=== PATIENT | female | born 1980 | race Asian ===

== ENCOUNTER 2021-08-24 06:41 | Emergency (ER) | payer BC ==
[2021-08-24] MEDS ORDERED: KETOROLAC 30 MG/ML INJ ONE (07:37)
[2021-08-24] MEDS ORDERED: NA CHLORIDE 0.9% 1,000 ML ONE (07:37)
[2021-08-24 07:47] LABS: Absolute Lymphocytes (CBC) 1.8 K/uL (0.7-4.9); Hematocrit 36.6 % (36.0-45.0); Lymphocytes % 29.9 % (15.3-44.8); MPV 7.1 fL (7.6-11.3); RBC Red Blood Cell Count 4.15 M/uL (3.86-4.86)
[2021-08-24 08:02] LABS: BUN Blood Urea Nitrogen 12 mg/dL (7-18); Bicarbonate 28 mmol/L (21-32); Glucose Level 120 mg/dL (74-106); Sodium Level 139 mmol/L (136-145)
--- NOTE | 2021-08-24 08:59 | RAD REPORT ---
EXAM DESCRIPTION: CT - Soft Tissue Neck W/Contr - 08/24/2021 8:33 am CLINICAL HISTORY: PAIN COMPARISON: <Comparisons> TECHNIQUE: During dynamic enhancement using 100 milliliters nonionic IV contrast, axial 5 millimeter thick images of the neck were obtained. All CT scans are performed using dose optimization technique as appropriate and may include automated exposure control or mA/KV adjustment according to patient size. FINDINGS: Intracranial portion the examination is unremarkable. No globe or orbital content abnormal ity. Mastoid air cells, middle ears and paranasal sinuses are normally aerated. No vascular abnormali ty seen. Adenoid tissue and tonsillar tissue within range of normal for patient age. Parapharyngeal fat is nor mal in appearance. No pharyngeal mucosal mass or asymmetry identifiable. No soft palate, tongue base or epiglottis abnormality seen. Laryngeal structures are unremarkable. The parotid and submandibular glands show no abnormal enlargement, mass or enhancement abnormality. N ormal size thyroid gland seen with no gross abnormality. No mass or lymphadenopathy in the soft tissues. A few small sub centimeter nonspecific cervical lymph nodes are present. No acute bone finding identifiable. C5-6 disc space narrowing is present. There is a mild disc bulge. Canal is 10 mm at this level. Uncovertebral joint hypertrophy causes a mild left foraminal stenosis. No right foraminal stenosis identifiable. IMPRESSION: As detailed above, no significant or suspicious soft tissue finding identifiable. C5-6 disc space narrowing with mild disc bulge. Canal is 10 mm in the midline. Mild left bony foramin al encroachment seen. No specific finding seen that would clearly explain right neck pain and right upper extremity radicul opathy.
--- NOTE | 2021-08-24 09:06 | ER ---
Nurse's Notes [facility] Name: Ary Villanueva Age: 41 yrs Sex: Female : 1980 Arrival Date: 08/24/2021 Time: 06:46 Bed 4 Private MD: Diagnosis: Radiculopathy, cervical region Presentation: 08/24 07:19 Chief complaint: Patient states: pt presented to reporting back, arm and neck pain. mccain Coronavirus screen: Vaccine status: Patient reports receiving the 2nd dose of the covid vaccine. Ebola Screen: Patient denies travel to an Ebola-affected area in the 21 days before illness onset. Initial Sepsis Screen: Does the patient meet any 2 criteria? No. Patient's initial sepsis screen is negative. Does the patient have a suspected source of infection? No. Patient's initial sepsis screen is negative. Risk Assessment: Do you want to hurt yourself or someone else? Patient reports no desire to harm self or others. Onset of symptoms was August 2021. 07:19 Method Of Arrival: Ambulatory 07:19 Acuity: JIAN 3 mccain Triage Assessment: 07:20 General: Appears in no apparent distress. Behavior is calm, cooperative. Pain: mccain Complains of pain in upper back, neck and arm. Musculoskeletal: Range of motion: limited in left shoulder, left elbow, right shoulder and right elbow. 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 - Social history:: Smoking status: Patient denies any tobacco usage or history of. Screenin:26 Abuse screen: Denies threats or abuse. Nutritional screening: No deficits noted. ke1 Tuberculosis screening: No symptoms or risk factors identified. Fall Risk No fall in past 12 months (0 pts). No secondary diagnosis (0 pts). IV access (20 points). Ambulatory Aid- None/Bed Rest/Nurse Assist (0 pts). Gait- Normal/Bed Rest/Wheelchair (0 pts) Mental Status- Oriented to own ability (0 pts). Total Owusu Fall Scale indicates No Risk (0-24 pts). Assessment: 07:25 General: Appears in no apparent distress. Behavior is calm, cooperative. Pain: ke1 Complains of pain in back and neck region Pain does not radiate. Pain currently is 3 out of 10 on a pain scale. at worst was 7 out of 10 on a pain scale. level that patient reports is acceptable is 3 out of 10 on a pain scale. Quality of pain is described as aching, Alleviated by rest, relaxation, Aggravated by exercise, increased activity, Also complains of inability to concentrate. Neuro: Level of Consciousness is awake, alert, obeys commands, Oriented to person, place, time, situation. Neuro: Speech is normal, Facial symmetry appears normal, Pupils are PERRLA, Intact. Cardiovascular: Heart tones S1 S2. Respiratory: Airway is patent Trachea midline Respiratory effort is even, unlabored, Respiratory pattern is regular, symmetrical. GI: No deficits noted. : No deficits noted. EENT: No deficits noted. Derm: No deficits noted. Musculoskeletal: Capillary refill < 3 seconds, Range of motion: intact in all extremities. Vital Signs: 07:19 BP 125 / 91; Pulse 81; Resp 18; Temp 98.1; Pulse Ox 99% on R/A; Weight 63.96 kg; Height mccain 5 ft. 4 in. (162.56 cm); 08:00 Pain 0/10; ke1 08:19 BP 112 / 73; Pulse 62; Resp 18; Pulse Ox 100% on R/A; ke1 07:19 Body Mass Index 24.20 (63.96 kg, 162.56 cm) mccain ED Course: 06:46 Patient arrived in ED. es 07:11 Sarita Guerrero FNP-C is PHCP. kb 07:11 Nimesh Styles MD is Attending Physician. kb 07:20 Triage completed. mccain 07:20 Arm band placed on. mccain 07:25 Placed in gown. Bed in low position. Call light in reach. Adult w/ patient. ke1 07:30 Cristo Esquivel, SKYLER is Primary Nurse. ke1 07:30 Inserted saline lock: 20 gauge in right wrist, using aseptic technique. ke1 08:33 CT Soft Tissue Neck W/contr In Process Unspecified. EDMS 09:29 No provider procedures requiring assistance completed. Inserted IV discontinued, mccain intact, Pressure dressing applied. Administered Medications: 07:42 Drug: NS 0.9% 1000 ml Route: IV; Rate: 1000 ml; Site: right wrist; ke1 07:43 Drug: Ketorolac 15 mg Route: IVP; Site: right wrist; ke1 08:00 Follow up: Pain 0/ Adult ke1 Outcome: 09:05 Discharge ordered by MD. kwan 09:29 Discharged to home mccain 09:29 Condition: good 09:29 Prescriptions given X 2. 09:30 Patient left the ED. mccain Signatures: Dispatcher [employer] Sarita Ferreira, GILBERT-C GILBERT-Crissy Fong Heather, RN RN mccain Cristo Esquivel RN RN ke
--- NOTE | 2021-08-24 09:06 | EDPHYS ---
Physician Documentation [facility] Name: Ary Villanueva Age: 41 yrs Sex: Female : 1980 Arrival Date: 08/24/2021 Time: 06:46 Bed 4 Private MD: ED Physician Nimesh Styles HPI: 08/24 07:19 This 41 yrs old Female presents to ER via Unassigned with complaints of Back kb Pain, Neck Pain, <24hrs Old, Arm Pain. 07:19 The patient has not experienced similar symptoms in the past. The patient has not kb recently seen a physician. 07:20 The patient or guardian complains of pain, tenderness. The symptoms are located on the kb right lateral aspect of neck and right posterior aspect of neck. Onset: The symptoms/episode began/occurred 4 day(s) ago. Context: The problem was sustained at home, The neck injury/problem resulted from from unknown cause. Associated signs and symptoms: The patient has no apparent associated signs or symptoms, The patient denies any alcohol use. The patient is not apparently intoxicated. No neurological symptoms were experienced by the patient prior to arrival in the emergency department. The pain radiates to the right arm. Modifying factors: The symptoms are alleviated by nothing. the symptoms are aggravated by nothing. Severity of symptoms: At their worst the symptoms were moderate, in the emergency department the symptoms are unchanged. Pt reports deep pain to right lateral neck that started 4 days ago and has gotten progressively worse. States she had trouble moving around this morning due to pain. States pain radiates down right arm and up to right ear/head. Denies fever, chills, nausea or vomiting. . 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 - Social history:: Smoking status: Patient denies any tobacco usage or history of. ROS: 07:19 Constitutional: Negative for fever, chills, and weight loss. kb 07:19 Neck: Positive for pain with movement, pain at rest, tenderness, of the right posterior aspect of neck and right lateral aspect of neck. 07:19 All other systems are negative. Exam: 07:19 Constitutional: This is a well developed, well nourished patient who is awake, alert, kb and in no acute distress. Head/Face: Normocephalic, atraumatic. ENT: Moist Mucous membranes Neck: Trachea midline, no thyromegaly or masses palpated, and no cervical lymphadenopathy. Supple, full range of motion without nuchal rigidity, or vertebral point tenderness. No Meningismus. Cardiovascular: Regular rate and rhythm with a normal S1 and S2. No gallops, murmurs, or rubs. No pulse deficits. Respiratory: Respirations even and unlabored. No increased work of breathing. Talking in full sentences Skin: Warm, dry with normal turgor. Normal color. MS/ Extremity: Pulses equal, no cyanosis. Neurovascular intact. Full, normal range of motion. Neuro: Awake and alert, GCS 15, oriented to person, place, time, and situation. Moves all extremities. Normal gait. Psych: Awake, alert, with orientation to person, place and time. Behavior, mood, and affect are within normal limits. Vital Signs: 07:19 BP 125 / 91; Pulse 81; Resp 18; Temp 98.1; Pulse Ox 99% on R/A; Weight 63.96 kg; Height mccain 5 ft. 4 in. (162.56 cm); 08:00 Pain 0/10; ke1 08:19 BP 112 / 73; Pulse 62; Resp 18; Pulse Ox 100% on R/A; ke1 07:19 Body Mass Index 24.20 (63.96 kg, 162.56 cm) mccain MDM: 07:11 Patient medically screened. kb 07:19 Data reviewed: vital signs, nurses notes. Data interpreted: Pulse oximetry: on room air kb is 100 %. Interpretation: normal. 09:05 Counseling: I had a detailed discussion with the patient and/or guardian regarding: the kb historical points, exam findings, and any diagnostic results supporting the discharge/admit diagnosis, lab results, radiology results, the need for outpatient follow up, a family practitioner, to return to the emergency department if symptoms worsen or persist or if there are any questions or concerns that arise at home. 08/24 07:18 Order name: CBC with Diff; Complete Time: 07:53 kb 08/24 07:18 Order name: Basic Metabolic Panel; Complete Time: 08:03 kb 08/24 07:18 Order name: IV Start; Complete Time: 08:27 kb 08/24 07:18 Order name: CT Soft Tissue Neck W/contr; Complete Time: 09:00 kb Administered Medications: 07:42 Drug: NS 0.9% 1000 ml Route: IV; Rate: 1000 ml; Site: right wrist; ke1 07:43 Drug: Ketorolac 15 mg Route: IVP; Site: right wrist; ke1 08:00 Follow up: Pain 0/10 Adult ke1 Disposition Summary: 08/24/21 09:05 Discharge Ordered Location: Home kb Condition: Stable kb Diagnosis - Radiculopathy, cervical region kb Followup: kb - With: Emergency Department - When: As needed - Reason: Worsening of condition Followup: kb - With: Private Physician - When: 2 - 3 days - Reason: Recheck today's complaints, Continuance of care, Re-evaluation by your physician Discharge Instructions: - Discharge Summary Sheet kb - Cervical Radiculopathy, [id number] kb Forms: - Medication Reconciliation Form kb - Thank You Letter kb - Antibiotic Education kb - Prescription Opioid Use kb Prescriptions: - Cyclobenzaprine 10 mg Oral Tablet - take 1 tablet by ORAL route every 8 hours As needed; 21 tablet; Refills: 0, kb Product Selection Permitted - Diclofenac Sodium 75 mg Oral tablet,delayed release (DR/EC) - take 1 tablet by ORAL route 2 times per day As needed; 30 tablet; Refills: 0, kb Product Selection Permitted Signatures: Dispatcher [employer] Sarita Ferreira, Brynn Carrion, RN RN Cristo Esquivel RN RN ke1
[2021-08-24 09:53] VITALS: TEMP 98.1
[2021-08-24 09:55] VITALS: BP 112/73; O2SAT 100
== END 2021-08-24 09:30 | disposition home or self-care (01) ==
LOC: ER 06:41
DX: M54.12 Radiculopathy, cervical region (principal)
CPT/HCPCS: 85025; 80048; 36415; 70491; 96374; 99283; Q9967; J7030

== ENCOUNTER 2024-04-26 21:43 | Emergency (ER) | payer BC ==
[2024-04-26] MEDS ORDERED: METOCLOPRAMIDE 10 MG/2mL INJ ONE (21:55)
[2024-04-26] MEDS ORDERED: DIPHENHYDRAMINE 50 MG/ML VIAL ONE (21:55)
[2024-04-26] MEDS ORDERED: NA CHLORIDE 0.9% 1,000 ML ONE (21:56)
--- NOTE | 2024-04-26 22:18 | RAD REPORT ---
EXAM: CT Ct Stroke Brain Wo Cont HISTORY: STROKE ALERT COMPARISON: 08/24/2021 TECHNIQUE: Multiple contiguous axial images were obtained for a CT of the brain without contrast. Sag ittal and coronal reformats were performed. One or more of the following dose reduction techniques were used: Automated exposure control, adjus tment of the mA and kV according to patient size, and iterative reconstruction. Unless otherwise specified, incidental findings do not require dedicated imaging follow-up. FINDINGS: No evidence of hydrocephalus, intracranial hemorrhage, or extra-axial fluid collection. The brain is normal in morphology. The calvarium is intact. The visualized paranasal sinuses and mastoid air cells are essentially clear . IMPRESSION: No evidence of acute intracranial abnormality. THIS REPORT CONTAINS FINDINGS THAT MAY BE CRITICAL TO PATIENT CARE. The findings were communicated vi a telephone to the ED staff to be communicated to Dr. Caruso on 04/26/2024 10:15 PM.
--- NOTE | 2024-04-26 22:30 | RAD REPORT ---
EXAMINATION: CT Neck Angio CLINICAL INDICATION: Female, 43 years old. [facility] MAIN dizzines Bed Name: 3 TECHNIQUE: Axial CT images were obtained from the aortic arch to the skull base after intravenous con trast utilizing angiographic protocol. Multiplanar reformats, as well as 3D post-processing (maximum intensity projection images, volume rendered images and/or shaded surface rendered images) w ere generated and reviewed. One or more of the following dose reduction techniques were used: Automated exposure control, adjustment of the mA and/or kV according to patient size, and/or iterativ e reconstruction. Unless otherwise specified, incidental findings do not require dedicated imaging follow-up. COMPARISON: No prior exam. FINDINGS: AORTA: The imaged aortic arch is normal. Normal three-vessel configuration of the arch. CCA: No artifact The common carotid arteries are patent and normal in caliber. ICA/ECA: Bilateral internal and external carotid arteries are patent. There is no significant interna l carotid artery stenosis. VERTEBRAL: The cervical vertebral arteries are patent to the skull base. Left vertebral artery is dom inant. SOFT TISSUE: No significant neck soft tissue abnormalities. The visualized lung apices are clear. 3D images confirm these findings. IMPRESSION: No significant flow abnormality of the neck vessels is identified. NASCET criteria used to quantify ICA stenosis, with the following grading scheme: Mild 0-49% stenosis Moderate 50-69% stenosis Severe 70-99% stenosis Reference: [place] Symptomatic Carotid Endarterectomy Trial Collaborators; Maurilio DRAKE, Brigitte SOTO, Ewelina RB, et al. Beneficial effect of carotid endarterectomy in symptomatic patients with high-grade carotid stenosis. N Engl J Med. 1990Feb 01;325(7):445-53.
--- NOTE | 2024-04-26 22:33 | RAD REPORT ---
EXAMINATION: CTA HEAD CLINICAL INDICATION: Female, 43 years old. DIZZINESS TECHNIQUE: Axial CT images were obtained through the head after intravenous contrast utilizing angiog raphic protocol with 3D post-processing (maximum intensity projection images, volume rendered images and/or shaded surface rendered images). One or more of the following dose reduction technique s were used: Automated exposure control, adjustment of the mA and/or kV according to patient size, and/or iterative reconstruction. Unless otherwise specified, incidental findings do not require dedic ated imaging follow-up. COMPARISON: No prior exam. FINDINGS: ICA: The petrous, cavernous, and supraclinoid segments of the bilateral internal carotid arteries are normal. DESHAWN: Anterior cerebral arteries are normal bilaterally. The anterior communicating artery is patent. MCA: Middle cerebral arteries are normal bilaterally. GALVANIZER ZINC: Posterior cerebral arteries are normal bilaterally. Vertebrobasilar: The vertebral arteries are patent. The basilar artery is normal in appearance. 3D images confirm these findings. IMPRESSION: Normal head CTA.
--- NOTE | 2024-04-26 22:44 | RAD REPORT ---
EXAMINATION: ONE VIEW CHEST XR CLINICAL INDICATION: Female, 43 years old.,stroke alert TECHNIQUE: Frontal chest projection is submitted. Examination is limited by patient positioning and t echnique. COMPARISON: No prior exam. FINDINGS: The lungs are well inflated and clear. No pneumothorax or sizable effusion. The heart is normal in s ize. Mediastinal contours are unremarkable. IMPRESSION: No acute intrathoracic abnormalities.
[2024-04-26 22:46] LABS: Absolute Lymphocytes (CBC) 1.7 K/uL (0.7-4.9); Absolute Monocytes 0.3 K/uL (0.1-1.3); Absolute Neutrophil 6.4 K/uL (1.8-8.0); Basophils % 0.1 % (0-1.3); Eosinophils % 0.6 % (0-4.4); Hematocrit 37.1 % (36.0-45.0); Hemoglobin 12.5 g/dL (12.0-15.0); Lymphocytes % 20.5 % (15.3-44.8); MCH 29.6 pg (27.0-35.0); MCHC 33.6 g/dL (32.0-36.0); MCV 88.1 fL (80-100); MPV 6.9 fL (7.6-11.3); Monocytes % 3.2 % (3.3-12.3); Neutrophils % 75.6 % (41.7-73.7); Nucleated Red Blood Cells % 0.1 % (0-0); Platelets 378 thou/uL (152-406); RBC Red Blood Cell Count 4.21 M/uL (3.86-4.86); Red Cell Distribution Width 13.2 % (12.1-15.2)
[2024-04-26 22:57] LABS: PT Prothrombin Time 10.6 SECONDS (9.4-12.5); PTT, Activated Partial Thromb 29.7 SECONDS (24.3-36.9); Protime INR 0.94
[2024-04-26 23:22] LABS: Anion Gap 6.5 mEq/L (5.0-15.0); Potassium 3.5 mEq/L (3.5-5.1)
--- NOTE | 2024-04-27 00:16 | ER ---
Nurse's Notes [facility] Name: Ary Villanueva Age: 43 yrs Sex: Female : 1980 Arrival Date: 04/26/2024 Time: 21:43 Bed 3 Private MD: Diagnosis: Other peripheral vertigo Presentation: 04/26 21:45 Chief complaint: Patient states: DIZZINESS AND VOMITING. ha1 21:45 Coronavirus screen: Vaccine status: Patient reports being unvaccinated. Ebola Screen: ha1 No symptoms or risks identified at this time. Initial Sepsis Screen: Does the patient meet any 2 criteria? No. Patient's initial sepsis screen is negative. Does the patient have a suspected source of infection? No. Patient's initial sepsis screen is negative. Risk Assessment: Do you want to hurt yourself or someone else? Patient reports no desire to harm self or others. Onset of symptoms was April 26, 2024. 21:45 Method Of Arrival: Wheelchair ha1 21:45 Acuity: JIAN 2 ha1 Triage Assessment: 21:45 General: Appears uncomfortable, Behavior is calm, cooperative. Pain: Denies pain. ha1 Neuro: Level of Consciousness is awake, alert, obeys commands, Oriented to person, place, time, situation, Reports dizziness. Cardiovascular: Capillary refill < 3 seconds Patient's skin is warm and dry. Respiratory: Airway is patent Respiratory effort is even, unlabored, Respiratory pattern is regular, symmetrical. 21:45 GI: Reports nausea, vomiting. ha1 Historical: - Allergies: 22:06 No Known Allergies; ha1 - PMHx: 22:06 Migraine; ha1 - PSHx: 22:06 None; ha1 - Immunization history:: Adult Immunizations not immunized. - Infectious Disease History:: Denies. - Social history:: Smoking status: Patient denies any tobacco usage or history of. Screenin:45 [facility] ED Fall Risk Assessment (Adult) History of falling in the last 3 months, jj7 including since admission No falls in past 3 months (0 pts) Confusion or Disorientation No (0 pts) Intoxicated or Sedated No (0 pts) Impaired Gait No (0 pts) Mobility Assist Device Used No (0 pt) Altered Elimination No (0 pt) Score/Fall Risk Level 0 - 2 = Low Risk Oriented to surroundings, Maintained a safe environment, Educated pt \T\ family on fall prevention, incl call for assistance when getting out of bed, Assessed \T\ reinforced patient's understanding of fall precautions. Abuse screen: Denies threats or abuse. Nutritional screening: No deficits noted. Tuberculosis screening: No symptoms or risk factors identified. Assessment: 21:45 General: Appears in no apparent distress. uncomfortable, Behavior is calm, cooperative, jj7 appropriate for age. Pain: Denies pain. Neuro: Reports dizziness, since 6p. 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 Full function Gait is steady, Speech is normal, Facial symmetry appears normal, Intact Reports. GI: Reports nausea, vomiting, from the dizziness. 04/27 00:19 Reassessment: PT UP AND AMBULATING WITH NO DIZZINESS. STEADY GAIT. jj7 Vital Signs: 04/26 21:45 BP 135 / 91; Pulse 76; Resp 17 S; Temp 97.6(T); Pulse Ox 99% on R/A; Weight 61.23 kg; ha1 Height 5 ft. 3 in. ; 22:44 BP 91 / 52; Pulse 77; Resp 17; Pulse Ox 98% ; jj7 23:30 BP 90 / 58; Pulse 71; Resp 17; Pulse Ox 98% ; jj7 04/27 00:28 BP 99 / 59; Pulse 80; Resp 18; Temp 98.8; Pulse Ox 100% ; Pain 0/10; jj7 04/26 21:45 Body Mass Index 23.91 (61.23 kg, 160.02 cm) 1 04/27 00:28 Pain Scale: Adult jj7 ED Course: 04/26 21:44 Patient arrived in ED. jj6 21:45 Patient has correct armband on for positive identification. Bed in low position. Call j7 light in reach. Side rails up X2. Provided Education on: USE OF CALL PICHARDO. Client placed on continuous cardiac and pulse oximetry monitoring. NIBP monitoring applied. 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 Pulse ox on. Warm blanket given. 21:45 Arm band placed on right wrist. Patient placed in an exam room, on a stretcher. jj7 21:50 Casey Caruso MD is Attending Physician. ec2 21:52 Sheng Delgado, RN is Primary Nurse. jj7 21:54 Triage completed. ha1 22:11 CT Stroke Brain w/o Contrast In Process Unspecified. EDMS 22:13 Inserted saline lock: 20 gauge in right antecubital area, using aseptic technique. jj7 Blood collected. Flushed with 10 mL NS. 22:21 CT Neck Angio In Process Unspecified. EDMS 22:22 Head angio In Process Unspecified. EDMS 22:28 Stroke CXR 1 View In Process Unspecified. EDMS 22:33 Basic Metabolic Panel Sent. jj7 22:33 CBC with Diff Sent. jj7 22:33 High Sensitivity Troponin Sent. jj7 22:33 Protime (+inr) Sent. jj7 22:33 Ptt, Activated Sent. jj7 23:13 Basic Metabolic Panel Sent. jj7 23:14 High Sensitivity Troponin Sent. jj7 04/27 00:16 Chang Edmond MD is Referral Physician. ec2 00:27 No provider procedures requiring assistance completed. IV discontinued, intact, jj7 bleeding controlled, No redness/swelling at site. Pressure dressing applied. Administered Medications: 04/26 22:27 Drug: NS 0.9% IV 1000 ml IV at 1000 ml once; to be given as a bolus over 60 minutes jj7 Route: IV; Rate: 1000 ml; Site: right antecubital; 04/27 00:20 Follow up: IV Status: Completed infusion jj7 04/26 22:28 Drug: metoCLOPramide IVP 10 mg IVP once; over 1 to 2 minutes Route: IVP; Site: right [facility] antecubital; 23:03 Follow up: Response: Marked relief of symptoms jj7 22:28 Drug: diphenhydrAMINE IVP 25 mg IVP once Route: IVP; Site: right antecubital; jj7 23:03 Follow up: Response: Marked relief of symptoms jj7 04/27 00:26 Drug: Meclizine PO 50 mg PO once Route: PO; jj7 00:26 Follow up: Response: No adverse reaction jj7 Medication: 04/26 21:45 VIS not applicable for this client. jj7 Outcome: 04/27 00:16 Discharge ordered by . ec2 00:26 Discharged to home ambulatory, with significant other, jj7 00:26 Condition: improved 00:26 Discharge instructions given to patient, significant other, Instructed on discharge instructions, medication usage, Demonstrated understanding of instructions, medications, Prescriptions given X 1, 00:30 Patient left the ED. jj7 Signatures: Dispatcher [employer] EDLA Grey, Elvi jj6 Carole Dowd RN RN ha1 Sheng Delgado RN RN jj7 Casey Caruso MD MD ec2
--- NOTE | 2024-04-27 00:16 | EDPHYS ---
Physician Documentation [facility] Name: Ary Villanueva Age: 43 yrs Sex: Female : 1980 Arrival Date: 04/26/2024 Time: 21:43 Bed 3 Private MD: ED Physician Casey Caruso HPI: 04/26 21:52 This 43 yrs old Female presents to ER via Unassigned with complaints of Dizziness.ec2 21:52 Patient arrives today for evaluation of sudden onset dizziness that started ec2 approximately 3 hours prior to arrival. Patient with an episode of similar symptoms in the past. Some nausea, no vomiting. No significant medical problems.. Historical: - Allergies: 22:06 No Known Allergies; ha1 - PMHx: 22:06 Migraine; ha1 - PSHx: 22:06 None; ha1 - Immunization history:: Adult Immunizations not immunized. - Infectious Disease History:: Denies. - Social history:: Smoking status: Patient denies any tobacco usage or history of. ROS: 21:52 Constitutional: as per hpi ec2 Exam: 21:52 Constitutional: GEN: NAD Head: atraumatic Eyes: EOMI Ears: External ears are ec2 normal. CV: regular rate LUNGS: no respiratory distress ABD: non-distended SKIN: no evidence of rashes MSK: no evidence of trauma. Neuro: Cranial nerves II through XII intact, strength intact all 4 extremities, sensation intact throughout, normal [id number] Vital Signs: 21:45 BP 135 / 91; Pulse 76; Resp 17 S; Temp 97.6(T); Pulse Ox 99% on R/A; Weight 61.23 kg; ha1 Height 5 ft. 3 in. ; 22:44 BP 91 / 52; Pulse 77; Resp 17; Pulse Ox 98% ; jj7 23:30 BP 90 / 58; Pulse 71; Resp 17; Pulse Ox 98% ; j7 04/27 00:28 BP 99 / 59; Pulse 80; Resp 18; Temp 98.8; Pulse Ox 100% ; Pain 0/10; jj7 04/26 21:45 Body Mass Index 23.91 (61.23 kg, 160.02 cm) [facility] 04/27 00:28 Pain Scale: Adult [facility] MDM: 04/26 21:52 Medical Screening Exam initiated ec2 21:53 Data reviewed: vital signs. ED course: Patient arrives today for evaluation of ec2 dizziness. Examination remarkable for intact neurologic examination. Given onset of symptoms as well as sudden component, will activate a stroke alert. Will obtain lab work, CT imaging of the head and neck. Differential diagnosis includes peripheral and central vertigo.. 22:14 ED course: Discussed case with radiology, negative CT scan of the head.. ec2 22:34 ED course: Discussed TNK ultimately do not feel patient is an appropriate candidate for ec2 this. Patient is with improving symptoms, no focal neurologic deficits, sudden onset symptoms and otherwise with no significant comorbidities.. 23:08 ED course: On reassessment patient with resolution of his symptoms. CT angio head and ec2 neck are negative.. 23:23 ED course: EKG independently reviewed and interpreted by me, shows normal sinus rhythm, ec2 rate of 60, no acute ST segment elevations, intervals are nonactionable.. 11 00:15 ED course: Patient ambulatory. No recurrence of symptoms. Suspect peripheral vertigo ec2 given the patient's sudden onset symptoms, associated nausea as well as positional movements exacerbating the symptoms. Will prescribe the patient meclizine to help patient follow-up with neurology. Patient discharged home with return precautions given.. 04/26 21:51 Order name: Basic Metabolic Panel; Complete Time: 23:24 ec2 04/26 21:51 Order name: CBC with Diff; Complete Time: 23:08 ec2 04/26 21:51 Order name: High Sensitivity Troponin; Complete Time: 23:24 ec2 04/26 21:51 Order name: Protime (+inr); Complete Time: 23:08 ec2 04/26 21:51 Order name: Ptt, Activated; Complete Time: 23:08 ec2 04/26 23:33 Order name: Glucose, Ancillary Testing; Complete Time: 23:34 EDMS 04/26 21:51 Order name: CT Neck Angio; Complete Time: 23:08 ec2 04/26 21:51 Order name: CT Stroke Brain w/o Contrast; Complete Time: 23:08 ec2 04/26 21:51 Order name: Stroke CXR 1 View; Complete Time: 23:08 ec2 04/26 21:57 Order name: Head angio; Complete Time: 23:08 EDMS 04/26 21:51 Order name: Accucheck; Complete Time: 23:26 ec2 04/26 21:51 Order name: Cardiac monitoring; Complete Time: 23:13 ec2 04/26 21:51 Order name: EKG - Nurse/Tech; Complete Time: 23:14 ec2 04/26 21:51 Order name: IV Saline Lock; Complete Time: 22:13 ec2 04/26 21:51 Order name: Labs collected and sent; Complete Time: 22:33 ec2 04/26 21:51 Order name: NPO; Complete Time: 21:52 ec2 04/26 21:51 Order name: O2 Per Protocol; Complete Time: 22:33 ec2 04/26 21:51 Order name: O2 Sat Monitoring; Complete Time: 22:33 ec2 04/26 21:51 Order name: Stroke Swallow Screen; Complete Time: 22:33 ec2 04/26 23:21 Order name: Misc. Order: ambulate; Complete Time: 00:18 ec2 Administered Medications: 04/26 22:27 Drug: NS 0.9% IV 1000 ml IV at 1000 ml once; to be given as a bolus over 60 minutes j7 Route: IV; Rate: 1000 ml; Site: right antecubital; 04/27 00:20 Follow up: IV Status: Completed infusion j7 04/26 22:28 Drug: metoCLOPramide IVP 10 mg IVP once; over 1 to 2 minutes Route: IVP; Site: right [address]; 23:03 Follow up: Response: Marked relief of symptoms j7 22:28 Drug: diphenhydrAMINE IVP 25 mg IVP once Route: IVP; Site: right antecubital; [facility] 23:03 Follow up: Response: Marked relief of symptoms jj7 04/27 00:26 Drug: Meclizine PO 50 mg PO once Route: PO; 7 00:26 Follow up: Response: No adverse reaction j7 Disposition Summary: 04/27/24 00:16 Discharge Ordered Notes: Location: Home ec2 Condition: Stable ec2 Diagnosis - Other peripheral vertigo ec2 Followup: ec2 - With: Private Physician - When: - Reason: Re-evaluation by your physician Followup: ec2 - With: Chang Edmond MD - When: - Reason: Recheck today's complaints Discharge Instructions: - Discharge Summary Sheet ec2 - Vertigo, [id number] ec2 Forms: - Medication Reconciliation Form ec2 - Antibiotic Education ec2 - Prescription Opioid Use ec2 - Patient Portal Instructions ec2 - Leadership Thank You Letter ec2 Prescriptions: - Meclizine 25 mg Oral Tablet - take 1 tablet ORAL route every 8 hours As needed; 30 tablet; Refills: 0, ec2 Product Selection Permitted Signatures: Dispatcher [employer] Carole Asfhord RN RN ha1 Sheng Delgado RN RN jj7 Casey Caruso MD MD ec2 Corrections: (The following items were deleted from the chart) 04/26 21:52 21:52 Neck Angio+CT.RAD.BRZ ordered. EDMS EDMS 21:52 21:52 CT-STROKE BRAIN W/O CONTRAST+CT.RAD.BRZ ordered. EDMS EDMS 21:52 21:52 Chest Single View+RAD.RAD.BRZ ordered. EDMS EDMS
[2024-04-27] MEDS ORDERED: MECLIZINE HCL 12.5 MG TAB ONE (00:21)
[2024-04-27 01:48] VITALS: BP 99/59; TEMP 98.8; O2SAT 100
--- NOTE | 2024-04-30 12:09 | EKG ---
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
== END 2024-04-27 00:30 | disposition home or self-care (01) ==
LOC: ER 21:43
DX: H81.399 Other peripheral vertigo, unspecified ear (principal)
CPT/HCPCS: 96361; 93005; 85025; 80048; 36415; 85610; 82947; 85730; 84484; 70496; 70498; 70450; 71045; 96375; 96374; 99285; Q9967; J8597; J2765; J1200; J7030